=== PATIENT | female | born 1985 | race Caucasian/White ===

== ENCOUNTER 2019-04-09 15:06 | Emergency (ER) | payer MEDICAID ==
[~2019-04-09] VITALS: Ht 172.7 cm; Wt 60.0 kg
[2019-04-09 15:49] LABS: CLARITY,URINE CLEAR (Clear); COLOR,URINE STRAW (Yellow); GLUCOSE, URINE NEGATIVE (Neg); KETONES,URINE NEGATIVE (Neg); LEUKOCYTE ESTERASE ,URINE NEGATIVE (Neg); NITRITES, URINE NEGATIVE (Neg); OCCULT BLOOD,URINE NEGATIVE (Neg); PROTEIN,URINE NEGATIVE (Neg); UROBILINOGEN,URINE 0.2 E.U/dL (0.2-1.0)
[2019-04-09 15:50] LABS: UA COLLECTION TYPE CLN CATCH MIDSTREAM
[2019-04-09 15:51] LABS: URINE HCG NEGATIVE (NEG)
[2019-04-09] MEDS ORDERED: METR500T PO (17:29)
[2019-04-09 17:45] VITALS: BP 148/75
== END 2019-04-09 17:53 | disposition home or self-care (01) ==
LOC: ER 15:08
DX: N76.0 Acute vaginitis (principal); F15.90 Other stimulant use, unspecified, uncomplicated; Z79.899 Other long term (current) drug therapy
CPT/HCPCS: 81003; 81025; 99283; Q0112

== ENCOUNTER 2019-04-26 11:21 | Emergency (ER) | payer MEDICAID ==
[~2019-04-26] VITALS: Ht 172.7 cm; Wt 61.6 kg
--- NOTE | 2019-04-26 11:38 | NUR ---
pt. not in lobby, at the gift shop in the main lobby.
[2019-04-26 13:05] LABS: URINE HCG NEGATIVE (NEG)
[2019-04-26 13:11] LABS: CLARITY,URINE CLEAR (Clear); COLOR,URINE YELLOW (Yellow); GLUCOSE, URINE NEGATIVE (Neg); KETONES,URINE NEGATIVE (Neg); LEUKOCYTE ESTERASE ,URINE NEGATIVE (Neg); NITRITES, URINE NEGATIVE (Neg); OCCULT BLOOD,URINE NEGATIVE (Neg); PH,URINE 7.5 (4.8-8.0); PROTEIN,URINE NEGATIVE (Neg); UROBILINOGEN,URINE 0.2 E.U/dL (0.2-1.0)
[2019-04-26 13:12] LABS: UA COLLECTION TYPE CLN CATCH MIDSTREAM
[2019-04-26 13:17] LABS: BASOPHILS # (AUTO) 0.1 X10'3 (0-0.2); BASOPHILS % (AUTO) 1.1 % (0-1); EOSINOPHILS # (AUTO) 0.1 X10'3 (0-0.9); HEMOGLOBIN 12.9 g/dl (12.0-16.0); LYMPHOCYTES # (AUTO) 2.7 X10'3 (1.1-4.8); LYMPHOCYTES % (AUTO) 39.6 % (21-51); MEAN CORPUSCULAR HEMOGLOBIN 30.5 PG (27.0-31.0); MEAN CORPUSCULAR VOLUME 89.7 FL (78-98); MEAN PLATELET VOLUME 6.6 FL (7.4-10.4); MONOCYTES # (AUTO) 0.4 X10'3 (0-0.9); MONOCYTES % (AUTO) 6.1 % (2-12); NEUTROPHILS # (AUTO) 3.4 X10'3 (1.8-7.7); NEUTROPHILS % (AUTO) 51.2 % (42-75); PLATELET COUNT 315 X10'3 (140-440); RED BLOOD COUNT 4.23 X10'6 (4.20-5.60); WHITE BLOOD COUNT 6.7 X10'3 (4.5-11.0)
[2019-04-26 13:21] LABS: URINE AMPHETAMINE SCREEN NEGATIVE (Neg); URINE BARBITUATE SCREEN NEGATIVE (Neg); URINE BENZODIAZEPINES SCREEN NEGATIVE (Neg); URINE CANNABINOID SCREEN NEGATIVE (Neg); URINE COCAINE SCREEN NEGATIVE (Neg); URINE METHADONE SCREEN NEGATIVE (Neg); URINE OPIATE SCREEN NEGATIVE (Neg); URINE PHENCYCLIDINE SCREEN NEGATIVE (Neg)
[2019-04-26 13:33] LABS: ALANINE AMINOTRANSFERASE 35 U/L (12-78); ALBUMIN 3.7 G/DL (3.4-5.0); ALBUMIN/GLOBULIN RATIO 1.2 (1.1-1.5); ALKALINE PHOSPHATASE 63 IU/L (46-116); ANION GAP 8 (8-16); ASPARTATE AMINO TRANSFERASE 20 U/L (10-37); BILIRUBIN,TOTAL 0.2 MG/DL (0.1-1.0); BLOOD UREA NITROGEN 9 MG/DL (7-18); BUN/CREATININE RATIO 12.5 (6.6-38.0); CALCIUM 8.8 MG/DL (8.5-10.1); CHLORIDE 102 MMOL/L (99-107); CREATININE 0.72 MG/DL (0.40-0.90); GLUCOSE 95 MG/DL (70-104); POTASSIUM 3.9 MMOL/L (3.5-5.1); SODIUM 138 MMOL/L (135-145); TOTAL CARBON DIOXIDE 28.1 MMOL/L (24-32); TOTAL PROTEIN 6.9 G/DL (6.4-8.2); eGFR > 90 ML/MIN
[2019-04-26 14:16] VITALS: BP 120/80
== END 2019-04-26 14:18 | disposition home or self-care (01) ==
LOC: ER 11:22
DX: R53.81 Other malaise (principal); F15.90 Other stimulant use, unspecified, uncomplicated
CPT/HCPCS: 36415; 80053; 80305; 81003; 81025; 84443; 85025; 99283

== ENCOUNTER 2019-06-14 13:55 | Emergency (ER) | payer MEDICAID ==
[~2019-06-14] VITALS: Ht 170.2 cm; Wt 61.6 kg
[2019-06-14 14:13] VITALS: BP 112/71
== END 2019-06-14 17:43 | disposition home or self-care (01) ==
LOC: ER 13:56
DX: B34.9 Viral infection, unspecified (principal); F17.210 Nicotine dependence, cigarettes, uncomplicated; F15.90 Other stimulant use, unspecified, uncomplicated
CPT/HCPCS: 87502; 87503; 99283

== ENCOUNTER 2019-07-02 14:18 | Emergency (ER) | payer MEDICAID ==
[~2019-07-02] VITALS: Ht 170.2 cm; Wt 59.1 kg
[2019-07-02 14:25] VITALS: BP 147/60
--- NOTE | 2019-07-02 15:38 | NUR ---
CALLED OUT TO CT. PT HAD MADE HER WAY INTO CT AND WAS HIDING IN THE BACK BEHIND THE SCANNER. PT PARANOID THAT SOMEONE WAS AFTER HER. SECURITY OUTSIDE PT WAS NOT COMING OUT "IF THERE ARE ANY MEN AROUND" ATTEMPED TO ASK PT HER NAME SHE FINALY STATED RABIA. PT CONITNUED TO TRY TO HIDE. SECURITY CAME IN MYSELF, JUANIS, AND DREAD ESCORTED PT INTO ER WITH SECURITY WALKING BEHIND US. PT ESCORTED TO PHONE BY REGISTRATION, GIVEN THE NUMBER TO [facility] SHE STATED SHE WANTED TO GO TO "THE OTHER HOSPITAL". PT ATTEMPTED TO MAKE A PHONE CALL MULTIPLE TIMES. PT WAS PARANOID AND IRRATIC. PT EVENTUALY WANTED TO LEAVE THE ER AND WAS ESCORTED TO THE PARKING LOT BY SECURITY.
== END 2019-07-02 16:15 | disposition left against medical advice (07) ==
LOC: ER 14:19
DX: F41.9 Anxiety disorder, unspecified (principal); Z53.21 Procedure and treatment not carried out due to patient leaving prior to being seen by health care provider

== ENCOUNTER 2019-12-08 13:45 | Emergency (ER) | payer MEDICAID ==
[~2019-12-08] VITALS: Ht 170.2 cm; Wt 67.0 kg
[~2019-12-08 13:45] MED LIST: NITR100C6 PO; ONDA4TAB6 PO; PHEN-824 PO
--- NOTE | 2019-12-08 15:47 | NUR ---
Pt. states no medical complaints, needs a medical clearance stating no symptoms of Covid-19
[2019-12-08 16:29] VITALS: BP 107/69
== END 2019-12-08 16:29 | disposition home or self-care (01) ==
LOC: ER 13:46
DX: Z11.59 Encounter for screening for other viral diseases (principal); F10.10 Alcohol abuse, uncomplicated; F15.90 Other stimulant use, unspecified, uncomplicated; Z79.899 Other long term (current) drug therapy; Y90.9 Presence of alcohol in blood, level not specified
CPT/HCPCS: 99281